=== PATIENT | female | born 1985 | race African-American/Black ===

== ENCOUNTER 2025-02-18 10:50 | Emergency (ER) | payer MEDICAID ==
[~2025-02-18] VITALS: Ht 154.9 cm; Wt 54.5 kg
[2025-02-18 10:57] VITALS: O2SAT 99
[2025-02-18 11:12] VITALS: BP 133/73; PULSE 105; RESP 18; TEMP 37; O2SAT 100
[2025-02-18 12:47] LABS: HCG SCREEN NEGATIVE
[2025-02-18 15:22] LABS: CHLORIDE 108 mEq/L (98-107); POTASSIUM 3.8 mEq/L (3.5-5.1); SODIUM 142 mEq/L (136-145)
[2025-02-18 15:23] LABS: BASOPHILS % 0.5 % (0.0-2.0); CALCIUM 9.2 mg/dL (8.7-10.4); CARBON DIOXIDE 28 mEq/L (21-32); HEMATOCRIT. 42.5 % (36.0-48.0); HEMOGLOBIN. 13.5 g/dL (12.0-16.0); LYMPHOCYTES % 31.7 % (20.0-50.0); MEAN CORPUSCULAR HEMOGLOBIN 26.6 pg (28.0-32.0); MEAN CORPUSCULAR HGB CONC 31.8 g/dL (31.0-37.0); MEAN CORPUSCULAR VOLUME 83.7 fL (81.0-99.0); MEAN PLATELET VOLUME 9.1 fl (7.4-10.4); MONOCYTES % 11.7 % (2.0-8.0); NEUTROPHILS % 54.1 % (40.0-76.0); PLATELET 344 x1000/uL (130-400); RED BLOOD CELL COUNT 5.08 mill/uL (4.2-5.4); RED CELL DISTRIBUTION WIDTH 14.2 % (11.6-14.6); WHITE BLOOD COUNT 7.5 x1000/uL (4.5-11.0)
[2025-02-18 15:28] LABS: CREATININE 0.9 mg/dL (0.6-1.0); GLUCOSE 93 mg/dL (70-105); UREA NITROGEN BLOOD 10 mg/dL (9-23)
[2025-02-18 16:25] LABS: INR 0.9; PARTIAL THROMBOPLASTIN TIME 26.2 sec (23.4-31.0); PROTHROMBIN TIME 10.2 sec (9.6-11.0)
== END 2025-02-18 17:43 | disposition left against medical advice (07) ==
LOC: ER 10:50 → EDBEDREQTM 17:14 → EDBEDREQ 17:14 → ER 17:43
DX: N93.9 Abnormal uterine and vaginal bleeding, unspecified (principal); Z98.890 Other specified postprocedural states
CPT/HCPCS: 80048; 84703; 85025; 85610; 85730; 86850; 86900; 86901; 36415; 99283; Z7610